=== PATIENT | female | born 1935 | race Caucasian/White ===

== ENCOUNTER 2021-09-04 12:05 | Emergency (ER) | payer MEDICARE ==
[~2021-09-04] VITALS: Ht 157.5 cm; Wt 67.0 kg
[2021-09-04 12:11] VITALS: BP 132/71
--- NOTE | 2021-09-04 13:03 | PHYS DOC ---
Past History Past Surgical History: Hysterectomy Additional Past Surgical Histo: hernia repair (BEV INIGUEZ APRN) General Adult EDM: Chief Complaint: PSYCH EVALUATION HPI: HPI: Patient is an 85-year-old female who presents to the emergency department brought in by her granddaughter for psychiatric evaluation. Patient's granddaughter states that "I think she has got PTSD". Granddaughter states that she has had some trauma with caring for her patient with end-stage dementia who in April of this year. She reports that over the last several weeks patient has reported hearing music from the neighbors house but it has progressed to where she believes that she is hearing the neighbors talk about her and she believes that the neighbors have bugged her house with cameras in auditory equipment to spy on her. Her granddaughter states that her chronic paranoia has worsened over the last several days. Patient denies any visual hallucination, chest pain, dizziness, headache. She does not have any history of dementia. Patient is alert and oriented x4 and answering questions appropriately. (BEV INIGUEZ APRN) Review of Systems: Review of Systems: 14 body systems of the review of systems have been reviewed. See HPI for pertinent positive and negative responses, otherwise all other systems are negative, nonpertinent or noncontributory (BEV INIGUEZ APRN) Allergies: Allergies: Allergies Coded Allergies Type Severity Reaction Last Updated Verified Penicillins Allergy Unknown 09/04/21 Yes (BEV INIGUEZ APRN) Physical Exam: PE: Constitutional: Well developed, well nourished, no acute distress, non-toxic appearance. [] HENT: Normocephalic, atraumatic, bilateral external ears normal, oropharynx moist, no oral exudates, nose normal. [] Eyes: PERRL, 4 mm pupils bilaterally, EOMI, conjunctiva normal, no discharge. [] Neck: Normal range of motion, no stridor Cardiovascular:Heart rate regular rhythm, no murmur [] Lungs & Thorax: Bilateral breath sounds clear to auscultation [] Abdomen: Bowel sounds normal, soft, no tenderness, no masses, no pulsatile masses. [] Skin: Warm, dry, no erythema, no rash. [] Back: Motion Extremities: No tenderness, no cyanosis, no clubbing, ROM intact, no edema. [] Neurologic: Alert and oriented X 3, normal motor function, normal sensory function, no focal deficits noted. [] Psychologic: Affect normal, judgement normal, tearful. [] (BEV INIGUEZ APRN) Current Patient Data: Labs: Laboratory Tests Test 09/04/21 12:46 09/04/21 13:09 White Blood Count 4.7 x10^3/uL Red Blood Count 4.24 x10^6/uL Hemoglobin 13.6 g/dL Hematocrit 40.6 % Mean Corpuscular Volume 96 fL Mean Corpuscular Hemoglobin 32 pg Mean Corpuscular Hemoglobin Concent 34 g/dL Red Cell Distribution Width 14.3 % Platelet Count 186 x10^3/uL Neutrophils (%) (Auto) 69 % Lymphocytes (%) (Auto) 20 % Monocytes (%) (Auto) 9 % Eosinophils (%) (Auto) 2 % Basophils (%) (Auto) 1 % Neutrophils # (Auto) 3.2 x10^3uL Lymphocytes # (Auto) 0.9 x10^3/uL Monocytes # (Auto) 0.4 x10^3/uL Eosinophils # (Auto) 0.1 x10^3/uL Basophils # (Auto) 0.0 x10^3/uL Urine Collection Type Clean catch Urine Color Yellow Urine Clarity Clear Urine pH 6.0 Urine Specific [place] 1.020 Urine Protein 30 mg/dl Urine Glucose (UA) Neg mg/dL Urine Ketones (Stick) Trace mg/dL Urine Blood Neg Urine Nitrite Neg Urine Bilirubin Neg Urine Urobilinogen Dipstick 0.2 mg/dL Urine Leukocyte Esterase Trace Urine RBC 0 /HPF Urine WBC Occ /HPF Urine Squamous Epithelial Cells Mod /LPF Urine Bacteria Few /HPF Sodium Level 139 mmol/L Potassium Level 4.7 mmol/L Chloride Level 107 mmol/L Carbon Dioxide Level 21 mmol/L Anion Gap 11 Blood Urea Nitrogen 28 mg/dL Creatinine 1.7 mg/dL Estimated GFR (Cockcroft-Gault) 28.5 BUN/Creatinine Ratio 16 Glucose Level 93 mg/dL Calcium Level 8.9 mg/dL Total Bilirubin 0.6 mg/dL Aspartate Amino Transf (AST/SGOT) 18 U/L Alanine Aminotransferase (ALT/SGPT) 27 U/L Alkaline Phosphatase 58 U/L Total Protein 6.5 g/dL Albumin 3.8 g/dL Albumin/Globulin Ratio 1.4 Urine Opiates Screen Neg Urine Methadone Screen Neg Urine Barbiturates Neg Urine Phencyclidine Screen Neg Urine Amphetamine/Methamphetamine Neg Urine Benzodiazepines Screen Pos Urine Cocaine Screen Neg Urine Cannabinoids Screen Neg Urine Ethyl Alcohol Neg SARS-CoV-2 Antigen (Rapid) Negative Vital Signs: Vital Signs Date Time Temp Pulse Resp B/P (MAP) Pulse Ox O2 Delivery O2 Flow Rate FiO2 09/04/21 12:11 97.4 78 18 132/71 (91) 100 Room Air (BEV INIGUEZ APRN) EKG: EKG: [] (BEV INIGUEZ APRN) Radiology/Procedures: Radiology/Procedures: [] (BEV INIGUEZ APRN) Heart Score: C/O Chest Pain: No Risk Factors: Risk Factors: DM, Current or recent (<one month) smoker, HTN, HLP, family history of CAD, obesity. Risk Scores: Score 0 - 3: 2.5% MACE over next 6 weeks - Discharge Home Score 4 - 6: 20.3% MACE over next 6 weeks - Admit for Clinical Observation Score 7 - 10: 72.7% MACE over next 6 weeks - Early Invasive Strategies (BVE INIGUEZ APRN) Course & Med Decision Making: Course & Med Decision Making Pertinent Labs and Imaging studies reviewed. (See chart for details) Patient presents to the emergency department for psychiatric evaluation. Patient is having increased paranoia and auditory hallucinations. Work-up in the ER consisted of blood work and urinalysis and Covid testing to medically clear patient. Psychiatric assessment team consultation placed. Patient was noted to have a urinary tract infection which will be treated with an antibiotic. Patient reports that her reaction to penicillin is a rash and she tolerates cephalosporins. Patient has elevation in her BUN and creatinine which is likely due to her chronic kidney disease stage III. Larry with the psychiatric assessment team assessed patient and patient does have an outpatient psychiatric appointment on September 18. Safety plan was established. Patient is no harm to herself she denies any suicidal or homicidal ideation. I discussed with patient all findings and diagnostic testing as well as the need to follow-up with PCP for further evaluation and treatment or return to the ER if any new or worsening symptoms. Strict return precautions were also discussed at length. Patient voiced understanding and agreement with the plan. Patient is hemodynamically stable at the time of disposition. (BEV INIGUEZ APRN) Course & Med Decision Making Did not see or evaluate patient. Did not discuss patient with [employer] OFFICER. Agree with [employer]ARF[employer] OFFICER's work-up and disposition per note (MEGA FLOWER MD) Dragon Disclaimer: Shreyas Disclaimer: This electronic medical record was generated, in whole or in part, using a voice recognition dictation system. (BEV INIGUEZ APRN) Departure Departure: Impression: Primary Impression: Encounter for psychiatric assessment Additional Impression: Urinary tract infection Qualified Codes: N30.00 - Acute cystitis without hematuria Disposition: HOME / SELF CARE / HOMELESS Condition: GOOD Referrals: AUGUSTA JUNIOR (PCP) Patient Instructions: Paranoia, Urinary Tract Infection Additional Instructions: You were seen in the emergency department for a psychiatric evaluation. You were noted to have a urinary tract infection. This will be treated with an antibiotic. Please start and finish it completely. Increase your fluids at home. Avoid any bladder irritants like caffeine, alcohol or sugary beverages. Keep your appointment on September 18 for evaluation. Follow-up with your primary care provider tomorrow regarding your ER visit. Return to the emergency department if you develop abdominal pain, intractable nausea or vomiting, high fevers refractory to treatment, shortness of breath, chest pain, suicidal or homicidal ideation. Scripts Cephalexin (KEFLEX) 500 Mg Capsule 1 CAP PO BID for uti for 7 Days, #14 CAP 0 Refills Prov: BEV INIGUEZ APRN 09/04/21 BEV INIGUEZ APRN Sep 04, 2021 13:03 MEGA FLOWER MD Sep 04, 2021 16:07
[2021-09-04 13:13] LABS: BASO % 1 % (0-3); EOS # 0.1 x10^3/uL (0.0-0.7); EOS % 2 % (0-3); HEMATOCRIT 40.6 % (36.0-47.0); HEMOGLOBIN 13.6 g/dL (12.0-15.5); LYMPH # 0.9 x10^3/uL (1.0-4.8); LYMPH % 20 % (24-48); MEAN CORPUSCULAR HEMOGLOBIN 32 pg (25-35); MEAN CORPUSCULAR HGB CONC 34 g/dL (31-37); MEAN CORPUSCULAR VOLUME 96 fL (79-100); MONO # 0.4 x10^3/uL (0.0-1.1); MONO % 9 % (0-9); NEUT # 3.2 x10^3uL (1.8-7.7); NEUT % 69 % (31-73); PLATELET COUNT 186 x10^3/uL (140-400); RED BLOOD COUNT 4.24 x10^6/uL (3.50-5.40); RED CELL DISTRIBUTION WIDTH 14.3 % (11.5-14.5); WHITE BLOOD COUNT 4.7 x10^3/uL (4.0-11.0)
[2021-09-04 13:18] LABS: BARBITURATES NEG (NEG); BENZODIAZEPINES POS (NEG); CANNABINOIDS NEG (NEG); COCAINE NEG (NEG); METHADONE NEG (NEG); OPIATES NEG (NEG); PHENCYCLIDINE NEG (NEG)
--- NOTE | 2021-09-04 13:20 | EKG ---
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
[2021-09-04 13:24] LABS: AMPHETAMINE/METHAMPHETAMINE NEG (NEG)
[2021-09-04 13:28] LABS: CALCIUM 8.9 mg/dL (8.5-10.1); CREATININE 1.7 mg/dL (0.6-1.0); GFR 28.5; POTASSIUM 4.7 mmol/L (3.5-5.1)
[2021-09-04 13:34] LABS: ALBUMIN 3.8 g/dL (3.4-5.0); ALBUMIN/GLOBULIN RATIO 1.4 (1.0-1.7); TOTAL BILIRUBIN 0.6 mg/dL (0.2-1.0); TOTAL PROTEIN 6.5 g/dL (6.4-8.2)
[2021-09-04 13:36] LABS: BACTERIA,URINE FEW /HPF (0-FEW); BILIRUBIN,URINE NEG (NEG); CLARITY,URINE CLEAR; COLOR,URINE YELLOW; GLUCOSE,URINE NEG (NEG); NITRITE,URINE NEG (NEG); RBC,URINE 0 /HPF (0-2); UROBILINOGEN,URINE 0.2 mg/dL (0.2 mg/dL); WBC,URINE OCC /HPF (0-4)
[2021-09-04 13:37] LABS: SQUAMOUS EPITHELIAL CELL,UR MOD /LPF
[2021-09-04] MEDS ORDERED: CEPH500C PO (14:18)
== END 2021-09-04 14:30 | disposition home or self-care (01) ==
LOC: ER 12:05
DX: Z00.8 Encounter for other general examination (principal); N30.00 Acute cystitis without hematuria; F03.90 Unspecified dementia, unspecified severity, without behavioral disturbance, psychotic disturbance, mood disturbance, and anxiety; F43.10 Post-traumatic stress disorder, unspecified; Z20.822 Contact with and (suspected) exposure to COVID-19; Z88.0 Allergy status to penicillin
CPT/HCPCS: 36415; 80053; 80307; 81001; 85025; 87086; 87426; 93005; 99284; C9803; U0003